=== PATIENT | female | born 1995 | race Caucasian/White ===

== ENCOUNTER 2020-07-19 05:17 | Inpatient (IN) | payer OTHER ==
[~2020-07-19 05:17] MED LIST: COLACE 100MG C100 MG PO; IBUPROFEN600 MG PO; NORCO 5-325 TA1 EACH PO
[2020-07-19 06:06] LABS: HEMOGLOBIN 12.3 gm/dl (12.3-15.3); RED BLOOD COUNT 4.48 M/UL (4.00-5.10); WHITE BLOOD COUNT 12.4 K/UL (4.5-11.0)
[2020-07-19 10:18] LABS: BUN/CREATININE RATIO 17 (0-10)
[2020-07-20 02:02] LABS: HEMOGLOBIN 10.8 gm/dl (12.3-15.3)
[2020-07-21] MEDS ORDERED: COLACE 100MG C100 MG PO (14:09)
[2020-07-21] MEDS ORDERED: IBUPROFEN600 MG PO (14:09)
== END 2020-07-21 16:37 | disposition home or self-care (01) | DRG 807 ==
LOC: OB 05:17
PROVIDERS: Obstetrics & Gynecology; ADMIT Obstetrics & Gynecology
PROC: 10E0XZZ Delivery of Products of Conception, External Approach (ICD-10-PCS; principal; 2020-07-19)
PROC: 0KQM0ZZ Repair Perineum Muscle, Open Approach (ICD-10-PCS; 2020-07-19)
PROC: 10907ZC Drainage of Amniotic Fluid, Therapeutic from Products of Conception, Via Natural or Artificial Opening (ICD-10-PCS; 2020-07-19)
PROC: 3E033VJ Introduction of Other Hormone into Peripheral Vein, Percutaneous Approach (ICD-10-PCS; 2020-07-19)
PROC: 0U7C7ZZ Dilation of Cervix, Via Natural or Artificial Opening (ICD-10-PCS; 2020-07-19)
DX: O99.214 Obesity complicating childbirth (principal); Z37.0 Single live birth; E66.9 Obesity, unspecified; Z20.822 Contact with and (suspected) exposure to COVID-19; Z3A.39 39 weeks gestation of pregnancy; O76 Abnormality in fetal heart rate and rhythm complicating labor and delivery; O13.4 Gestational [pregnancy-induced] hypertension without significant proteinuria, complicating childbirth; O66.0 Obstructed labor due to shoulder dystocia; O62.2 Other uterine inertia; O70.1 Second degree perineal laceration during delivery; O69.81X0 Labor and delivery complicated by cord around neck, without compression, not applicable or unspecified
CPT/HCPCS: 36415; 51702; 80053; 81001; 82570; 82800; 83615; 83735; 84156; 84550; 85014; 85018; 85025; 90471; 90715; J2590; J2795; J3475; J7120; U0003